=== PATIENT | female | born 1995 | race Caucasian/White ===

== ENCOUNTER 2021-07-24 18:00 | Emergency (ER) | payer OTHER ==
[~2021-07-24] VITALS: Ht 157.5 cm; Wt 111.1 kg
[~2021-07-24 18:00] MED LIST: BCP; CEPH250A PO; CIPR500 PO; DOCU100 PO; Flomax0.4 MG PO; HYDACE5 PO; NAPR500EC PO; Percocet 5-3251 EACH PO; Pyridium200 MG PO
[2021-07-24] MEDS ORDERED: LIDO700A20 TOP (19:38)
== END 2021-07-24 19:54 | disposition home or self-care (01) ==
LOC: ER 18:00
DX: S86.912A Strain of unspecified muscle(s) and tendon(s) at lower leg level, left leg, initial encounter (principal); Z79.899 Other long term (current) drug therapy; X50.9XXA Other and unspecified overexertion or strenuous movements or postures, initial encounter
CPT/HCPCS: 76882; 99283-25; A9270